=== PATIENT | male | born 1950 | race Hispanic/Latino ===

== ENCOUNTER 2017-12-03 11:29 | Emergency (ER) | payer OTHER, MEDICARE ==
[~2017-12-03 11:29] MED LIST: FURO40TA5 PO; LACT10SO PO; METO2.5T2 PO; POTA-79 PO; PROP40TA7 PO; RIFA550T PO
[2017-12-03 11:45] LABS: HEMATOCRIT 31.2 % (42-54); MEAN CORPUSCULAR HEMOGLOBIN 35.1 pg (27.0-33.0); MEAN CORPUSCULAR HGB CONC 36.4 g/dL (32.0-36.0); MEAN CORPUSCULAR VOLUME 96.6 fL (79-99); NUCLEATED RED BLOOD CELLS 0.2 % (0.0-0.19); PLATELET COUNT (AUTO) 45 K/uL (130-400); RED BLOOD CELL COUNT(AUTO) 3.23 MIL/uL (4.50-6.20); RED CELL DISTRIBUTION WIDTH 15.1 % (11.0-15.5)
[2017-12-03 11:55] LABS: CREATININE 1.2 mg/dL (0.5-1.5); POTASSIUM 4.4 mmol/L (3.5-5.1)
[2017-12-03 12:01] LABS: ALBUMIN 2.5 g/dL (3.5-5.0); BILIRUBIN,TOTAL 2.6 mg/dL (0.2-1.0); TOTAL PROTEIN, SERUM 6.1 g/dL (6.0-8.3)
[2017-12-03 12:04] LABS: BAND NEUTROPHILS % (MANUAL) 2 % (0-2); EOSINOPHILS % (MANUAL) 6 % (1-6); LYMPHOCYTES % (MANUAL) 23 % (22-44); MAN.DIFF COMMENT-IMPRESSION MANUAL DIFFERENTIAL; MONOCYTES % (MANUAL) 5 % (2-9); OTHER CELLS,MANUAL % 1 (0-0); SEGMENTED NEUTROPHILS % 63 % (40-70)
[2017-12-03] MEDS ORDERED: HYDROCODONE/ACETAMINOPHEN 10/325 MG TAB ONE (12:12)
[2017-12-03] MEDS ORDERED: TETANUS/DIPHTHERIA TOXOID [ADULT] 0.5 ML VIAL IM ONE (13:24)
== END 2017-12-03 13:39 | disposition home or self-care (01) ==
LOC: EDH 11:29
DX: S50.02XA Contusion of left elbow, initial encounter (principal); S90.32XA Contusion of left foot, initial encounter; I10 Essential (primary) hypertension; Z79.899 Other long term (current) drug therapy; V09.9XXA Pedestrian injured in unspecified transport accident, initial encounter; Y93.89 Activity, other specified; Y92.89 Other specified places as the place of occurrence of the external cause; Y99.8 Other external cause status
CPT/HCPCS: 36415; 70450; 71045; 72125; 72170; 73080; 73630; 80053; 85025; 90471; 90714

== ENCOUNTER → 2019-09-18 | Outpatient (CLI) | payer OTHER, MEDICARE | END | disposition home or self-care (01) | LOC: RAH 07:38 | PROVIDERS: ATTEND Internal Medicine Gastroenterology | DX: I86.8 Varicose veins of other specified sites (principal); K74.60 Unspecified cirrhosis of liver; Z90.49 Acquired absence of other specified parts of digestive tract; Z90.6 Acquired absence of other parts of urinary tract | CPT/HCPCS: 76700 ==

== ENCOUNTER 2021-02-08 14:15 | Emergency (ER) | payer OTHER, MEDICARE ==
[~2021-02-08 14:15] MED LIST changes: -LACT10SO PO; +LACT10SO5 PO
[2021-02-08] MEDS ORDERED: LIDOCAINE 5% TOPICAL PATCH TP ONE (15:04)
[2021-02-08] MEDS ORDERED: KETOROLAC TROMETHAMINE 30MG/ML ONE (15:04)
[2021-02-08 15:28] LABS: BASOPHILS % (AUTO) 0.3 % (0.0-5.0); EOSINOPHILS % (AUTO) 6.1 % (0.0-8.0); HEMATOCRIT 33.1 % (42-54); LYMPHOCYTES % (AUTO) 25.4 % (21.0-51.0); MEAN CORPUSCULAR HEMOGLOBIN 33.8 pg (27.0-33.0); MEAN CORPUSCULAR HGB CONC 35.3 g/dL (32.0-36.0); MEAN CORPUSCULAR VOLUME 95.7 fL (79-99); MONOCYTES % (AUTO) 5.9 % (3.0-13.0); NEUTROPHILS % (AUTO) 61.8 % (40.0-77.0); PLATELET COUNT (AUTO) 48 K/uL (130-400); RED BLOOD CELL COUNT(AUTO) 3.46 MIL/uL (4.50-6.20); RED CELL DISTRIBUTION WIDTH 14.4 % (11.0-15.5); WHITE BLOOD COUNT (AUTO) 3.9 K/uL (4.8-10.8)
[2021-02-08 15:46] LABS: ALBUMIN 2.5 g/dL (3.5-5.0); BILIRUBIN,TOTAL 2.7 mg/dL (0.2-1.0); CREATININE 1.9 mg/dL (0.5-1.5); POTASSIUM 5.1 mmol/L (3.5-5.1); TOTAL PROTEIN, SERUM 5.6 g/dL (6.0-8.3)
== END 2021-02-08 19:37 | disposition home or self-care (01) ==
LOC: EDH 14:15
DX: M54.5 Low back pain (principal); M54.6 Pain in thoracic spine; K74.60 Unspecified cirrhosis of liver; E66.01 Morbid (severe) obesity due to excess calories; Z95.1 Presence of aortocoronary bypass graft
CPT/HCPCS: 36415; 71045; 74176; 80053; 84484 ×2; 85025; 93005 ×2; 96372; 99285; J1885

== ENCOUNTER → 2021-10-11 | Outpatient (CLI) | payer OTHER, MEDICARE | END | disposition home or self-care (01) | LOC: RAH 07:57 | PROVIDERS: ATTEND Internal Medicine Gastroenterology | DX: K74.60 Unspecified cirrhosis of liver (principal); R16.1 Splenomegaly, not elsewhere classified | CPT/HCPCS: 76700; 93975 ==

== ENCOUNTER → 2021-11-09 | Outpatient (CLI) | payer OTHER, MEDICARE ==
[~2021-11-09] MED LIST changes: +0.9%NACL 1000ML 1,000 ML IV ONE
== END | disposition home or self-care (01) ==
LOC: DAH 10:00 → EDSTATUS 11-15 09:20
PROVIDERS: ATTEND Internal Medicine Gastroenterology
DX: K74.60 Unspecified cirrhosis of liver (principal); Z20.822 Contact with and (suspected) exposure to COVID-19; I10 Essential (primary) hypertension; K21.9 Gastro-esophageal reflux disease without esophagitis; K64.9 Unspecified hemorrhoids; Z86.010 Personal history of colon polyps; Z90.49 Acquired absence of other specified parts of digestive tract; Z95.0 Presence of cardiac pacemaker; Z82.49 Family history of ischemic heart disease and other diseases of the circulatory system; Z83.3 Family history of diabetes mellitus; Z86.73 Personal history of transient ischemic attack (TIA), and cerebral infarction without residual deficits; Z53.8 Procedure and treatment not carried out for other reasons
CPT/HCPCS: 87635; C9803; J7030

== ENCOUNTER 2022-12-19 10:12 | Emergency (ER) | payer OTHER, MEDICARE ==
[~2022-12-19] VITALS: Ht 167.6 cm; Wt 108.9 kg
[~2022-12-19 10:12] MED LIST changes: -0.9%NACL 1000ML 1,000 ML IV ONE
[2022-12-19 10:16] VITALS: BP 136/59
[2022-12-19] MEDS ORDERED: KETOROLAC 30MG VIAL (30MG/ML) IM ONE (13:00)
[2022-12-19] MEDS ORDERED: ACET-66 PO (13:24)
== END 2022-12-19 15:03 | disposition home or self-care (01) ==
LOC: EDH 10:12
DX: S80.01XA Contusion of right knee, initial encounter (principal); M94.0 Chondrocostal junction syndrome [Tietze]; I50.9 Heart failure, unspecified; W18.39XA Other fall on same level, initial encounter; Y93.89 Activity, other specified; Y92.89 Other specified places as the place of occurrence of the external cause; Y99.8 Other external cause status; Z79.899 Other long term (current) drug therapy
CPT/HCPCS: 99284; 73562; 73590; 71101; 96372; J1885

== ENCOUNTER 2022-12-29 12:37 | Observation (INO) | payer OTHER, MEDICARE ==
[~2022-12-29] VITALS: Ht 172.7 cm; Wt 102.8 kg
[~2022-12-29 12:37] MED LIST changes: +ACET-66 PO
[2022-12-29 13:53] LABS: EOSINOPHILS % (AUTO) 3.4 % (0.0-8.0); HEMATOCRIT 31.1 % (42-54); MEAN CORPUSCULAR HGB CONC 33.1 g/dL (32.0-36.0); MEAN CORPUSCULAR VOLUME 102.6 fL (79-99); MONOCYTES % (AUTO) 5.4 % (3.0-13.0); NEUTROPHILS % (AUTO) 69.6 % (40.0-77.0); PLATELET COUNT (AUTO) 43 K/uL (130-400); RED BLOOD CELL COUNT(AUTO) 3.03 MIL/uL (4.50-6.20); RED CELL DISTRIBUTION WIDTH 17.1 % (11.0-15.5); WHITE BLOOD COUNT (AUTO) 3.5 K/uL (4.8-10.8)
[2022-12-29 14:14] LABS: ALBUMIN 2.6 g/dL (3.5-5.0); CREATININE 1.7 mg/dL (0.5-1.5); TOTAL PROTEIN, SERUM 6.1 g/dL (6.0-8.3)
[2022-12-29 14:43] LABS: APPEARANCE,URINE CLEAR (CLEAR); BILIRUBIN,URINE NEGATIVE (NEGATIVE); COLOR,URINE YELLOW (YELLOW); GLUCOSE, URINE (UA) NEGATIVE (NEGATIVE); KETONES,URINE NEGATIVE (NEGATIVE); LEUKOCYTE ESTERASE ,URINE NEGATIVE Leu/uL (NEGATIVE); NITRATE,URINE NEGATIVE (NEGATIVE); OCCULT BLOOD,URINE SMALL (NEGATIVE); PH,URINE 6.5 (5.0-8.0); PROTEIN,URINE NEGATIVE (NEGATIVE); UROBILINOGEN,URINE 0.2 mg/dL (0.2-1.0)
[2022-12-29 15:10] LABS: MUCUS,URINE RARE LPF (None Seen); SQUAMOUS EPITHELIAL CELL,UR RARE /HPF (0-2)
[2022-12-29 15:18] LABS: CREATININE 1.6 mg/dL (0.5-1.5); POTASSIUM 5.9 mmol/L (3.5-5.1)
[2022-12-29 15:28] LABS: INR 1.25 (0.85-1.15); PROTHROMBIN TIME 13.5 SEC (9.6-11.6)
[2022-12-29 15:29] LABS: PARTIAL THROMBOPLASTIN TIME 36.9 SEC (26.3-35.5)
[2022-12-29 15:56] LABS: MAGNESIUM 1.8 mg/dL (1.80-2.40)
[2022-12-29] MEDS ORDERED: ONDANSETRON 4MG INJ IVP PRN (18:30)
[2022-12-29] MEDS ORDERED: ACETAMINOPHEN 325 MG TAB PO PRN (18:30)
[2022-12-29] MEDS ORDERED: ACETAMINOPHEN 650 MG SUPPOSITORY RC PRN (18:30)
[2022-12-29] MEDS ORDERED: LABETALOL 20MG SYG IV PRN (18:30)
[2022-12-29] MEDS ORDERED: CLONIDINE HCL 0.1 MG TABLET PO PRN (18:30)
[2022-12-29] MEDS ORDERED: HYDRALAZINE 20MG/ML VIAL IV PRN (18:30)
[2022-12-29] MEDS ORDERED: DOCUSATE SODIUM 100 MG CAP PO PRN (18:30)
[2022-12-29] MEDS: LACTULOSE 20 GM/30 ML UDCUP PO SCH (18:57)
[2022-12-29] MEDS ORDERED: KAYEXALATE 15GM/60ML PO SCH (19:02)
[2022-12-29 19:52] LABS: AMPHET/METH SCREEN,URINE NEGATIVE (NEGATIVE); BARBITURATE SCREEN, URINE NEGATIVE (NEGATIVE); BENZODIAZEPINES SCREEN,URINE NEGATIVE (NEGATIVE); CANNABINOID SCREEN,URINE NEGATIVE (NEGATIVE); COCAINE SCREEN,URINE NEGATIVE (NEGATIVE); OPIATE SCREEN,URINE NEGATIVE (NEGATIVE); PHENCYCLIDINE SCREEN,URINE NEGATIVE (NEGATIVE)
[2022-12-29] MEDS: INSULIN HUMULIN R 100 UNIT/ML 3ML SQ SCH (20:16)
[2022-12-29] MEDS ORDERED: RIFA550T PO (20:37)
[2022-12-29] MEDS ORDERED: PROP20TA7 PO (20:37)
[2022-12-29] MEDS ORDERED: POTA10CA45 PO (20:37)
[2022-12-29] MEDS ORDERED: CHOL200012 PO (20:37)
[2022-12-29] MEDS ORDERED: SPIR50TA5 PO (20:37)
[2022-12-29] MEDS ORDERED: FURO40TA5 PO (20:37)
[2022-12-29] MEDS ORDERED: FISH1CAP27 PO (20:37)
[2022-12-29] MEDS ORDERED: LACT10SO32 PO (20:37)
[2022-12-29] MEDS ORDERED: GARL1000 PO (20:37)
[2022-12-29] MEDS ORDERED: PANT40TA54 PO (20:37)
[2022-12-29] MEDS ORDERED: ACET-66 PO (20:37)
[2022-12-30] MEDS: LACTULOSE 20 GM/30 ML UDCUP PO SCH ×4 (01:15→18:35)
[2022-12-30 03:15] VITALS: BP 143/68
[2022-12-30 05:06] LABS: BASOPHILS % (AUTO) 0.2 % (0.0-5.0); EOSINOPHILS % (AUTO) 3.2 % (0.0-8.0); HEMATOCRIT 32.6 % (42-54); LYMPHOCYTES % (AUTO) 19.7 % (21.0-51.0); MEAN CORPUSCULAR HEMOGLOBIN 34.3 pg (27.0-33.0); MEAN CORPUSCULAR HGB CONC 32.2 g/dL (32.0-36.0); MEAN CORPUSCULAR VOLUME 106.5 fL (79-99); NEUTROPHILS % (AUTO) 69.7 % (40.0-77.0); PLATELET COUNT (AUTO) 51 K/uL (130-400); RED BLOOD CELL COUNT(AUTO) 3.06 MIL/uL (4.50-6.20); RED CELL DISTRIBUTION WIDTH 17.4 % (11.0-15.5)
[2022-12-30 05:10] LABS: MAGNESIUM 1.8 mg/dL (1.80-2.40); PHOSPHORUS 3.9 mg/dL (2.5-4.9)
[2022-12-30] MEDS: INSULIN HUMULIN R 100 UNIT/ML 3ML SQ SCH ×4 (05:46→20:20)
[2022-12-30 08:00] VITALS: BP 119/73
[2022-12-30] MEDS ORDERED: KAYEXALATE 15GM/60ML PO PRN (08:00)
[2022-12-30] MEDS: PANTOPRAZOLE 40 MG/VIAL IVP SCH ×2 (08:15→20:13)
[2022-12-30] MEDS: RIFAXIMIN 550 MG TABLET PO SCH ×2 (08:15→20:14)
[2022-12-30] MEDS: FUROSEMIDE 40 MG TABLET PO SCH ×2 (08:16→20:14)
[2022-12-30 08:17] LABS: CREATININE 1.7 mg/dL (0.5-1.5); POTASSIUM 5.2 mmol/L (3.5-5.1)
[2022-12-30] MEDS: PROPRANOLOL HCL 20 MG TAB PO SCH ×3 (09:00→20:14)
[2022-12-30 12:00] VITALS: BP 147/55
[2022-12-30 16:00] VITALS: BP 150/87
[2022-12-30 20:00] VITALS: BP 125/61
[2022-12-31] VITALS: BP 116/58
[2022-12-31] MEDS: LACTULOSE 20 GM/30 ML UDCUP PO SCH ×2 (00:15→06:37)
[2022-12-31 04:00] VITALS: BP 139/57
[2022-12-31 05:40] LABS: HEMATOCRIT 28.4 % (42-54); MEAN CORPUSCULAR HEMOGLOBIN 34.6 pg (27.0-33.0); MEAN CORPUSCULAR HGB CONC 34.2 g/dL (32.0-36.0); MEAN CORPUSCULAR VOLUME 101.4 fL (79-99); RED BLOOD CELL COUNT(AUTO) 2.8 MIL/uL (4.50-6.20); RED CELL DISTRIBUTION WIDTH 17.2 % (11.0-15.5); WHITE BLOOD COUNT (AUTO) 3.8 K/uL (4.8-10.8)
[2022-12-31 05:58] LABS: CREATININE 1.8 mg/dL (0.5-1.5); POTASSIUM 4.8 mmol/L (3.5-5.1)
[2022-12-31 05:59] LABS: MAGNESIUM 1.8 mg/dL (1.80-2.40); PHOSPHORUS 3.9 mg/dL (2.5-4.9)
[2022-12-31] MEDS: INSULIN HUMULIN R 100 UNIT/ML 3ML SQ SCH (06:37)
[2022-12-31 07:10] VITALS: BP 107/62
[2022-12-31] MEDS: FUROSEMIDE 40 MG TABLET PO SCH (08:03)
[2022-12-31] MEDS: PROPRANOLOL HCL 20 MG TAB PO SCH (08:03)
[2022-12-31] MEDS: RIFAXIMIN 550 MG TABLET PO SCH (08:03)
[2022-12-31] MEDS: PANTOPRAZOLE 40 MG/VIAL IVP SCH (08:03)
[2022-12-31] MEDS ORDERED: LACT10SO9 PO (09:59)
== END 2022-12-31 12:58 | disposition home or self-care (01) ==
LOC: EDH 12:37 → EDHIP 18:01 → 4BH 12-30 03:02
PROVIDERS: ADMIT Internal Medicine; ATTEND Internal Medicine
DX: K76.82 Hepatic encephalopathy (principal); K74.60 Unspecified cirrhosis of liver; D61.818 Other pancytopenia; E87.5 Hyperkalemia; E72.20 Disorder of urea cycle metabolism, unspecified; I12.9 Hypertensive chronic kidney disease with stage 1 through stage 4 chronic kidney disease, or unspecified chronic kidney disease; N18.32 Chronic kidney disease, stage 3b; E78.5 Hyperlipidemia, unspecified; R74.01 Elevation of levels of liver transaminase levels; Z79.899 Other long term (current) drug therapy; Z98.890 Other specified postprocedural states
CPT/HCPCS: 99285; 82550; 83735 ×3; 84484; 80053; 80305; 82140 ×3; 85025 ×2; 85610; 85730; 82948 ×7; 81001; 36415 ×3; 70450; 93005; 96374; 96376 ×2; 84100 ×2; 80048 ×2; 97039 ×2; 85027; 97161; G0378 ×43; C9113 ×3

== ENCOUNTER 2023-07-28 19:38 | Emergency (ER) | payer OTHER, MEDICARE ==
[~2023-07-28] VITALS: Ht 172.7 cm; Wt 108.0 kg
[~2023-07-28 19:38] MED LIST changes: -ACET-66 PO; +CHOL200012 PO; +FISH1CAP27 PO; +GARL1000 PO; -LACT10SO5 PO; +LACT10SO85 PO; +LACT10SO9 PO; -METO2.5T2 PO; +PANT40TA54 PO; -POTA-79 PO; +POTA10CA85 PO; +PROP20TA7 PO; -PROP40TA7 PO; +SPIR50TA5 PO
[2023-07-28 20:08] LABS: HEMATOCRIT 31.6 % (42-54); MEAN CORPUSCULAR HGB CONC 34.2 g/dL (32.0-36.0); MEAN CORPUSCULAR VOLUME 102.3 fL (79-99); PLATELET COUNT (AUTO) 49 K/uL (130-400); RED BLOOD CELL COUNT(AUTO) 3.09 MIL/uL (4.50-6.20); RED CELL DISTRIBUTION WIDTH 17.2 % (11.0-15.5); WHITE BLOOD COUNT (AUTO) 4.2 K/uL (4.8-10.8)
[2023-07-28] MEDS ORDERED: 0.9%NACL 1000ML 1,000 ML IV ONE (20:30)
[2023-07-28 20:31] LABS: CREATININE 2.2 mg/dL (0.5-1.5)
[2023-07-28 20:35] LABS: ALBUMIN 3.3 g/dL (3.5-5.0); BILIRUBIN,TOTAL 4.5 mg/dL (0.2-1.0); TOTAL PROTEIN, SERUM 6.4 g/dL (6.0-8.3)
[2023-07-28 20:45] LABS: PLATELET MORPHOLOGY COMMENT MARKED DECREASE
[2023-07-28 21:00] LABS: ADD UA MICROSCOPIC YES; APPEARANCE,URINE CLEAR (CLEAR); BILIRUBIN,URINE NEGATIVE (NEGATIVE); COLOR,URINE LIGHT-YELLOW (YELLOW); GLUCOSE, URINE (UA) NEGATIVE (NEGATIVE); KETONES,URINE NEGATIVE (NEGATIVE); LEUKOCYTE ESTERASE ,URINE 500 Leu/uL (NEGATIVE); NITRATE,URINE NEGATIVE (NEGATIVE); OCCULT BLOOD,URINE MODERATE (NEGATIVE); PROTEIN,URINE NEGATIVE (NEGATIVE); UROBILINOGEN,URINE 0.2 mg/dL (0.2-1.0)
[2023-07-28 21:03] LABS: BACTERIA,URINE RARE /HPF (None Seen); HYALINE CASTS, URINE 26-50 /LPF (0-1 /LPF); MUCUS,URINE RARE LPF (None Seen); SQUAMOUS EPITHELIAL CELL,UR FEW /HPF (0-2); WBC,URINE 26-50 /HPF (0-1)
[2023-07-28] MEDS ORDERED: CEFTRIAXONE 1G VIAL IVPB ONE (21:30)
[2023-07-28 22:37] VITALS: BP 136/53; PULSE 60; RESP 18; O2SAT 100
[2023-07-28] MEDS ORDERED: CEPH500B PO (23:01)
== END 2023-07-28 23:25 | disposition home or self-care (01) ==
LOC: EDH 19:38
DX: N39.0 Urinary tract infection, site not specified (principal); R19.7 Diarrhea, unspecified; I10 Essential (primary) hypertension; Z79.899 Other long term (current) drug therapy
CPT/HCPCS: 99285; 74176; 96365; 96361; 80053; 83690; 85027; 87077; 87088; 87186; 83605; 81001; 36415; J7030; J0696